=== PATIENT | female | born 1925 | race Caucasian/White ===

== ENCOUNTER → 2017-02-02 | Outpatient (CLI) | payer OTHER ==
[~2017-02-02] MED LIST: ARIMIDEX1 MG PO; CALCIUM PO; CENTRUM SILVER1 EAC4 PO; CENTRUM TABLET1 TAB PO; PRILOSEC 20 MG20 MG PO; PROLIA60 MG/1 ML SQ; TYLENOL325 MG PO
== END ==
LOC: RAD 03:42
DX: N63 Unspecified lump in breast (principal)